=== PATIENT | female | born 1995 | race Two or more races ===

== ENCOUNTER 2018-08-16 06:02 | Emergency (ER) | payer BC ==
[~2018-08-16] VITALS: Ht 160 cm; Wt 59.0 kg
[2018-08-16 06:12] VITALS: Ht 160 cm; Wt 59.0 kg
[2018-08-16 06:31] VITALS: BP 116/71
== END 2018-08-16 08:01 | disposition home or self-care (01) ==
LOC: ED 06:02
DX: T19.2XXA Foreign body in vulva and vagina, initial encounter (principal); X58.XXXA Exposure to other specified factors, initial encounter; Y93.89 Activity, other specified; Y92.89 Other specified places as the place of occurrence of the external cause; Y99.8 Other external cause status